=== PATIENT | male | born 1940 | race Caucasian/White ===

== ENCOUNTER 2018-04-25 16:30 | Inpatient (IN) | payer MEDICARE, BC ==
--- NOTE | 2018-04-25 17:38 | ED ---
Abdominal Pain/Male - HPI Summary HPI Summary: A 77 y/o male presents to the ED c/o flank pain since 04/21/2018. He went to [facility] had a CT done where he found out he has a kidney stone. The report from [facility] showed: 8mm stone in proximal ureter with perinephric stranding. Distal ureter collapsed. He rates his pain as 5/10. He denies Fever, Chills, Erythema (eyes), Sore throat, Chest pain, Shortness of Breath, Cough, Vomiting, Nausea, Dysuria, Hematuria, Myalgia, Edema, Rash and Dizziness. He denies a Hx of A-fib. - History of Current Complaint Chief Complaint: EDAbdPain Stated Complaint: ABD PAIN Time Seen by Provider: 04/25/18 17:14 Hx Obtained From: Patient Onset/Duration: Sudden Onset, Lasting Days, Still Present Timing: Constant Severity Initially: Moderate Severity Currently: Moderate Pain Intensity: 5 Pain Scale Used: 0-10 Numeric Location: Flank Radiates to: Flank - Allergies/Home Medications Allergies/Adverse Reactions: Allergies Allergy/AdvReac Type Severity Reaction Status Date / Time No Known Allergies Allergy Verified 04/25/18 16:36 Home Medications: Home Medications Allopurinol TAB* [Zyloprim 100 MG TAB*] 100 mg PO DAILY 04/25/18 [History Confirmed 04/25/18] Ciprofloxacin TAB* [Cipro 500 MG TAB*] 500 mg PO BID 04/25/18 [History Confirmed 04/25/18] Levothyroxine TAB* [Synthroid TAB*] 75 mcg PO DAILY 04/25/18 [History Confirmed 04/25/18] PMH/Surg Hx/FS Hx/Imm Hx Endocrine/Hematology History: Denies: Hx Diabetes Cardiovascular History: Denies: Hx Atrial Fibrillation, Hx Hypertension Infectious Disease History: No Infectious Disease History: Denies: Traveled Outside the [place] in Last 30 Days - Family History Known Family History: Negative: Cardiac Disease, Hypertension, Diabetes - Social History Alcohol Use: None Substance Use Type: Reports: None Smoking Status (MU): Never Smoked Tobacco Review of Systems Negative: Fever, Chills Negative: Erythema Negative: Sore Throat Negative: Chest Pain Negative: Shortness Of Breath, Cough Positive: Abdominal Pain. Negative: Vomiting, Nausea Positive: flank pain. Negative: dysuria, hematuria Negative: Myalgia, Edema Negative: Rash Neurological: Negative - dizziness All Other Systems Reviewed And Are Negative: Yes Physical Exam - Summary Physical Exam Summary: Constitutional: Well-developed, Well-nourished, Alert. (-) Distressed Skin: Warm, Dry HENT: Normocephalic; Atraumatic Eyes: Conjunctiva normal Neck: Musculoskeletal ROM normal neck. (-) JVD, (-) Stridor, (-) Tracheal deviation Cardio: Irregularly irregular pulse, (-) Murmur Pulmonary/Chest wall: Effort normal. (-) Respiratory distress, (-) Wheezes, (-) Rales Abd: Soft, (-) epigastric tenderness, (-) Distension, (-) Guarding, (-) Rebound , (+) left CVA tenderness. Musculoskeletal: (-) Edema Lymph: (-) Cervical adenopathy Neuro: Alert, Oriented x3 Psych: Mood and affect Normal Triage Information Reviewed: Yes Vital Signs On Initial Exam: Initial Vitals Temp Pulse Resp BP Pulse Ox 99.6 F 64 18 162/97 97 04/25/18 16:32 04/25/18 16:32 04/25/18 16:32 04/25/18 16:32 04/25/18 16:32 Vital Signs Reviewed: Yes Diagnostics - Vital Signs Vital Signs Temp Pulse Resp BP Pulse Ox 04/25/18 16:32 99.6 F 64 18 162/97 97 - Laboratory Result Diagrams: 04/25/18 17:51 04/25/18 17:51 Lab Statement: Any lab studies that have been ordered have been reviewed, and results considered in the medical decision making process. - Radiology abdomen x-ray Radiology Interpretation Completed By: ED Physician - proximal uretal stone on left side. Pening official radiology report. - CT abdomen/pelvis CT Interpretation Completed By: Radiologist - 1. Obstructing 0.8 cm calculus ( Density 1540 HU) in the proximal left ureter, with associated moderate left hydronephrosis and left perinephric stranding. 2. Additional small nonobstructive calyceal calculi in both kidneys. 3. Other chronic findings, as above. ED physician reviewed this report. - Ultrasound No standard instances Ultrasound Interpretation Completed By: Radiologist - Renal US: No evidence of hydronephrosis or nephrolithiasis. ED physician reviewed this report. - EKG 18:20 Cardiac Rate: NL - 87 bpm EKG Rhythm: Sinus Rhythm Summary of EKG Findings: no STEMI. Abdominal Pain Fem Course/Dx - Course Course Of Treatment: A 77 y/o male presents to the ED c/o flank pain since 04/21. He went to [facility] had a CT done where he found out he has a kidney stone. The report from [facility] showed: 8mm stone in proximal ureter with perinephric stranding. Distal ureter collapsed. He rates his pain as 5/10. He denies Fever, Chills, Erythema (eyes), Sore throat, Chest pain, Shortness of Breath, Cough, Vomiting, Nausea, Dysuria, Hematuria, Myalgia, Edema, Rash and Dizziness. He denies a Hx of A-fib. His EKG showed NSR at 87 bpm. His abd/ pelvis CT impression was: 1. Obstructing 0.8 cm calculus (Density 1540 HU) in the proximal left ureter,. with associated moderate left hydronephrosis and left perinephric stranding. 2. Additional small nonobstructive calyceal calculi in both kidneys. 3. Other chronic findings, as above. His renal US impression was No evidence of hydronephrosis or nephrolithiasis. I discussed with Dr. Woods definite findings on the CT which are not evident on the US. His abd x-ray revealed a proximal uretal stone on his left side. Dx: obstructive uropathy, obstructed uretal stone, acute renal failure. Dr. Mack States that he wants to take the patient to surgery tomorrow morning because currently the roads are impassable and there is no surgical emergency. The patient will be admitted. - Diagnoses Provider Diagnoses: Obstructive uropathy, Acute renal failure, Kidney stone - Provider Notifications Discussed Care Of Patient With: Jake Mack Time Discussed With Above Provider: 19:15 Instructed by Provider To: Other - He wants to take the patient to surgery tomorrow morning because currently the roads are impassable and there is no surgical emergency. Discharge - Sign-Out/Discharge Documenting (check all that apply): Patient Departure - admit - Discharge Plan Condition: Fair Disposition: ADMITTED TO [facility] - Attestation Statements Document Initiated by Scribe: Yes Documenting Scribe: Garret Nobles Provider For Whom Scribe is Documenting (Include Credential): Terrance Wray MD Scribe Attestation: I, Garret Nobles, scribed for Terrance Wray MD on 04/25/18 at 2220. Consult Consult: At 20:[address] Woods definite findings on the CT which are not evident on the US.
[2018-04-25] MEDS ORDERED: NS 0.9% 1000 ML* 1,000 ML IV ONE (17:50)
[2018-04-25 18:05] LABS: ABS Basophils 0 10^3/ul (0-0.2); ABS Eosinophils 0 10^3/ul (0-0.6); ABS Neutrophils 15.7 10^3/ul (1.5-7.7); ABS Nucleated RBC 0 10^3/ul; Eosinophil % 0.1 % (0-6); Hematocrit 40 % (42-52); Hemoglobin 13.9 g/dl (14.0-18.0); Lymphocyte % 5.8 % (25-47); Mean Corpuscular HGB Conc 34 g/dl (31-36); Mean Corpuscular Hemoglobin 32 pg (27-31); Mean Corpuscular Volume 94 fL (80-94); Nucleated Red Blood Cells % 0; Platelet Count 171 10^3/ul (150-450); Red Cell Distribution Width 15 % (10.5-15); White Blood Count 17.8 10^3/ul (3.5-10.8)
[2018-04-25] MEDS: Ketorolac INJ* 30 MG/ML 1 ML VIAL IV PUSH ONE ×2 (18:09→18:12)
[2018-04-25 18:11] LABS: INR 1.25 (0.77-1.02)
[2018-04-25] MEDS ORDERED: oxyCODONE/Acetamin 5/325 MG* TAB PO ONE (18:11)
[2018-04-25 18:47] LABS: Urine Appearance Clear; Urine Blood 2+ (Negative); Urine Color Yellow; Urine Ketones Negative (Negative); Urine Protein 2+(100 mg/dL) (Negative); Urine Red Blood Cell 3+(>10/hpf) (Absent); Urine Specific Gravity 1.009 (1.010-1.030); Urine Urobilinogen Negative (Negative); Urine White Blood Cell 1+(6-10/hpf) (Absent)
[2018-04-25] MEDS ORDERED: Piperacillin/Tazobac ADVAN(*) 3.375 GM in NS 0.9% 100 ML* 100 ML IVPB ONE (18:51)
[2018-04-25] MEDS ORDERED: cefTRIAXone(*) 2 GM in NS 0.9% 100 ML* 100 ML IVPB ONE (20:15)
[2018-04-25] MEDS ORDERED: NS 0.9% 1000 ML* 1,000 ML IV SCH (20:15)
[2018-04-25] MEDS ORDERED: Al Hydrox/Mg Hydrox/Simet LIQ* 30 ML UDC PO PRN (20:16)
[2018-04-25] MEDS ORDERED: Ondansetron INJ* 2 MG/ML VIAL IV PRN (20:16)
[2018-04-25] MEDS ORDERED: Acetaminophen TAB* 325 MG PO PRN (20:16)
[2018-04-25] MEDS ORDERED: Heparin VIAL(*) 5000 UNITS/ML VIAL (FIVE THOUSAND) SUBCUT SCH (22:00)
--- NOTE | 2018-04-26 03:45 | HP ---
CC: Dr. Harmon; Dr. Coleman * HISTORY AND PHYSICAL: DATE OF ADMISSION: 04/25/18 TIME OF EVALUATION: 1999. PRIMARY CARE PHYSICIAN: Dwight Harmon MD BURR BENCH HAND: Jorge Coleman MD CHIEF COMPLAINT: Left side pain. HISTORY OF PRESENT ILLNESS: This is a 77-year-old male with a past medical history of CKD stage 3, who presented to the emergency room from the PCP's office with an obstructed ureteral stone. The patient states his symptoms have been going on for almost a week with left lower side pain, worse with lying on it. He denies any urinary symptoms. No back pain, no flank pain, no dysuria, no urinary frequency. He thinks he may have had a low-grade temp. He has had nausea throughout the week. He had diarrhea earlier, but has improved. He has no history of a stone. He went to see his PCP, who did labs and a CAT scan and he was found to have an obstructing stone in the proximal left ureter. Urology was contacted. They recommended admission, antibiotics and they will take him to the OR in the morning. In the emergency room, the patient had labs, imaging , was given Zosyn, 1 L of normal saline, Percocet, and referred to the hospitalist service for further evaluation. PAST MEDICAL HISTORY: 1. Gout. 2. Hypothyroidism. 3. CKD, stage 3, followed by Dr. Coleman. MEDICATIONS: 1. Ciprofloxacin 500 mg p.o. b.i.d. started on 04/24/18. 2. Allopurinol 100 mg p.o. daily. 3. Synthroid 75 mcg p.o. daily. ALLERGIES: No known drug allergies. FAMILY HISTORY: Mother from Alzheimer's. Father from colon cancer and heavy smoker. SOCIAL HISTORY: The patient lives at home with his , Mirna, who is his healthcare proxy. He is independent of ADLs. No history of smoking, alcohol, or illicit drug use. Code status is full code. REVIEW OF SYSTEMS: A 14-point review of systems as mentioned in the HPI; otherwise, negative. PHYSICAL EXAMINATION GENERAL: No acute distress, resting comfortably. VITAL SIGNS: T-max 99.6, pulse rate 88, respiratory rate 12, oxygen saturation 96% on room air, and blood pressure 156/94. HEENT: Head normocephalic. Pupils are equal, reactive, anicteric. Oropharynx : Mucous membranes moist. NECK: Supple. No lymphadenopathy. No nuchal rigidity. RESPIRATORY: Diminished breath sounds. No wheezes, rhonchi, or rales. CARDIAC: Regular rate and rhythm with ectopic beats. Soft systolic murmur heard. ABDOMEN: Positive bowel sounds. Soft, nontender. He does have left-sided discomfort. No rebound or guarding. No flank pain. EXTREMITIES: Trace pretibial edema. +1 DPs. NEUROLOGIC: Alert and oriented x3. No gross focal neurologic deficits. DIAGNOSTIC STUDIES/LAB DATA: White count 17.8, hemoglobin 13.9, hematocrit 40 , platelets 171. INR 1.25. Sodium 130, potassium 4.7, chloride 96, bicarb 18, BUN 113, creatinine 6.09. Urinalysis shows squamous cells present, +3 reds, +1 white, +2 leuks, +2 blood, +2 protein. Radiographic Data: Abdomen and pelvis CT: Obstructing 0.8 cm calculus on the proximal left ureter with associated moderate left hydronephrosis and left perinephric stranding. Additional small nonobstructive calculi in both kidneys. Renal ultrasound: No evidence of hydronephrosis or nephrolithiasis. EKG: Sinus rhythm with PACs. ASSESSMENT: This is a 77-year-old male with a past medical history of chronic kidney disease stage 3, who presents to the emergency room after having found an obstructing 0.8 cm calculus in the ureter. 1. Left lower side pain. Assessment: As mentioned, the patient with an obstructing stone on the left. Dr. Watt has been contacted. He plans to take him first thing in the morning. He recommended 2 g of ceftriaxone, IV fluids, and n.p.o. We will repeat his labs in the morning. The patient is aware of the plan. 2. Mboti-ze-soniwyu kidney injury. The patient with worsening renal function, could be related to his obstructing stone. Plan: We will renally dose his meds. Continue IV fluids. Repeat his labs in the morning. Consider contacting Dr. Coleman if his renal function does not improve. CHRONIC MEDICAL PROBLEMS: 1. Gout. Continue his allopurinol. 2. Hypothyroidism. Continue his Synthroid. 3. FEN. Regular diet until he is n.p.o. after midnight with IV fluids. 4. DVT prophylaxis. The patient scores high risks, place him on heparin subcu t.i.d., hold his morning dose. 5. Code status. Full code. PATIENT TIME: Greater than 40 minutes spent doing the history and physical, more than half the time was spent in direct patient contact. [id number]/[facility] #: [id number] MTDD
[2018-04-26] MEDS ORDERED: Famotidine IV* 10 MG/ML 2 ML (20 mg) IV ONE (06:07)
[2018-04-26] MEDS: Levothyroxine TAB* 75 MCG TAB PO SCH (06:32)
[2018-04-26 06:36] LABS: ABS Basophils 0 10^3/ul (0-0.2); ABS Eosinophils 0 10^3/ul (0-0.6); ABS Lymphocytes 1.5 10^3/ul (1.0-4.8); ABS Monocytes 1.1 10^3/ul (0-0.8); ABS Neutrophils 10.3 10^3/ul (1.5-7.7); ABS Nucleated RBC 0 10^3/ul; Eosinophil % 0.4 % (0-6); Hematocrit 36 % (42-52); Hemoglobin 12.5 g/dl (14.0-18.0); Lymphocyte % 11.7 % (25-47); Mean Corpuscular HGB Conc 34 g/dl (31-36); Mean Corpuscular Hemoglobin 32 pg (27-31); Mean Corpuscular Volume 94 fL (80-94); Nucleated Red Blood Cells % 0.1; Platelet Count 166 10^3/ul (150-450); Red Blood Count 3.89 10^6/ul (4.00-5.40); Red Cell Distribution Width 15 % (10.5-15)
[2018-04-26 06:55] LABS: EGFR Non-African American 9.6 (>60)
[2018-04-26] MEDS ORDERED: Famotidine IV* 10 MG/ML 2 ML (20 mg) ONE (07:50)
[2018-04-26] MEDS ORDERED: Midazolam* 1 MG/ML 5 ML VIAL (5 MG) ONE (08:14)
[2018-04-26] MEDS ORDERED: fentaNYL* 50 MCG/ML 2 ML VIAL (100 MCG VIAL) ONE (08:14)
[2018-04-26] MEDS ORDERED: Ketorolac INJ* 30 MG/ML 1 ML VIAL ONE (08:16)
[2018-04-26] MEDS ORDERED: Propofol* 10 MG/ML 20 ML BTL IV PUSH ONE (08:16)
[2018-04-26] MEDS ORDERED: Dexamethasone IV* 4 MG/ML 1 ML (4 MG) ONE (08:16)
[2018-04-26] MEDS ORDERED: Ondansetron INJ* 2 MG/ML VIAL ONE (08:16)
[2018-04-26] MEDS ORDERED: Lidocaine 2% PF * 5 ML VIAL ONE (08:16)
[2018-04-26] MEDS ORDERED: DiMENhydriNATE IV* 50 MG/ML VIAL IV PUSH PRN (08:24)
[2018-04-26] MEDS ORDERED: Iohexol 180 (CONTRAST) 10 ML SDV IV ONE (08:24)
[2018-04-26] MEDS ORDERED: Acetaminophen TAB* 325 MG PO PRN (08:24)
[2018-04-26] MEDS ORDERED: HYDROmorphone INJ1* 1 MG/ML SYRINGE IV PRN (08:24)
[2018-04-26] MEDS ORDERED: Naloxone* 0.4 MG/ML 1 ML VIAL IV PRN (08:24)
[2018-04-26] MEDS: NS 0.9% 1000 ML* 1,000 ML IV SCH ×3 (11:30→21:54)
[2018-04-26] MEDS: Allopurinol TAB* 100 MG PO SCH (11:31)
--- NOTE | 2018-04-26 13:11 | PN ---
Subjective Date of Service: 04/26/18 Interval History: Pt resting comfortably in bed post-operatively, NAD. Says pain is well controlled. Denies chest pain, shortness of breath, dizziness, headache, flank pain, abdominal pain. Tolerating diet without N/V. Objective Active Medications: Acetaminophen (Tylenol Tab*) 650 mg PO Q4H PRN PRN Reason: FEVER/PAIN Al Hydrox/Mg Hydrox/Simethicone (Maalox Plus*) 30 ml PO Q6H PRN PRN Reason: INDIGESTION Allopurinol (Zyloprim Tab*) 100 mg PO DAILY [facility] Last Admin: 04/26/18 11:31 Dose: 100 mg Heparin Sodium (Porcine) (Heparin Vial(*)) 5,000 units SUBCUT Q8HR [facility] Sodium Chloride (Ns 0.9% 1000 Ml*) 1,000 mls @ 75 mls/hr IV PER RATE [facility] Last Admin: 04/26/18 11:30 Dose: 75 mls/hr Levothyroxine Sodium (Synthroid Tab*) 75 mcg PO 0600 [facility] Last Admin: 04/26/18 06:32 Dose: 75 mcg Ondansetron HCl (Zofran Inj*) 4 mg IV Q4H PRN PRN Reason: NAUSEA/VOMITING Vital Signs - 8 hr 04/26/18 04/26/18 04/26/18 06:33 09:42 09:45 Temperature 98.2 F 98.8 F Pulse Rate 87 74 80 Respiratory 16 18 15 Rate Blood Pressure 135/64 128/85 131/81 (mmHg) O2 Sat by Pulse 98 100 100 Oximetry 04/26/18 04/26/18 04/26/18 09:50 09:55 10:00 Temperature Pulse Rate 81 84 78 Respiratory 15 18 16 Rate Blood Pressure 124/85 130/89 138/88 (mmHg) O2 Sat by Pulse 100 98 98 Oximetry 04/26/18 04/26/18 04/26/18 10:25 11:30 12:45 Temperature 97.6 F 97.6 F 97.7 F Pulse Rate 70 80 Respiratory 16 Rate Blood Pressure 136/83 131/82 (mmHg) O2 Sat by Pulse 98 100 Oximetry 04/26/18 12:55 Temperature Pulse Rate 92 Respiratory Rate Blood Pressure 115/69 (mmHg) O2 Sat by Pulse 97 Oximetry Oxygen Devices in Use Now: None Eyes: No Scleral Icterus, PERRLA Ears/Nose/Mouth/Throat: NL Teeth, Lips, Gums, Clear Oropharnyx, Mucous Membranes Moist Neck: NL Appearance and Movements; NL JVP, Trachea Midline Respiratory: Symmetrical Chest Expansion and Respiratory Effort, Clear to Auscultation Cardiovascular: NL Sounds; No Murmurs; No JVD, RRR, No Edema Abdominal: NL Sounds; No Tenderness; No Distention Extremities: No Edema, No Clubbing, Cyanosis Skin: No Rash or Ulcers, No Nodules or Sclerosis, - - Some bleeding from urinary meatus. Gauze in place. Neurological: Alert and Oriented x 3, - - Resting tremor, pt says this is baseline. 3/5 strength bilateral UEs. 5/5 strength BLE. Lines/Tubes/Other Access: Clean, Dry and Intact Peripheral IV Nutrition: Taking PO's Result Diagrams: 04/26/18 15:40 04/26/18 06:14 Assess/Plan/Problems-Billing Assessment: 77 year old male with 0.8 cm obstructing stone in L ureter with hydronephrosis s/p internal urethrotomy and left urethral stent placement with Dr. Rucker today - Patient Problems (1) Urethral obstruction Current Visit: Yes Status: Acute Code(s): N36.8 - OTHER SPECIFIED DISORDERS OF URETHRA SNOMED Code(s): 21047741 Comment: - s/p internal urethrotomy and L urethral stent placement by Dr. Rucker today. - Per Dr. Rucker, mauricio should not be removed. Pt is at risk for post obstructive diuresis and associated volume/electrolye imbalances. Will support with NS at 75 mL/hr as well as periodic boluses based on urine output (will replace half of urine output with NS boluses). I/O Q4H. We will also moniter his electrolytes closely with a BMP with afternoon. Pt can be discharged with low dose cephalosporin on discharge (Renal dosing for Ceftinir is 300mg once daily). He will follow up with Dr. Rucker on Sunday morning at 8am. - Foly in place and draining. Slight pink tint to urine. - Pt with some post-operative bleeding from urinary meatus. Will continue to monitor. (2) Acute kidney injury superimposed on CKD Current Visit: Yes Status: Acute Code(s): N17.9 - ACUTE KIDNEY FAILURE, UNSPECIFIED; N18.9 - CHRONIC KIDNEY DISEASE, UNSPECIFIED SNOMED Code(s): 36069397 Comment: - Baseline Cr appears to be ~3.5 - Elevated on admission in the setting of hydronephrosis/urethral obstruction. Trending down this AM, but will continue to moniter. Repeat BMP this afternoon. - Renal adjust medications (3) DVT prophylaxis Current Visit: Yes Status: Acute Code(s): EIO2221 - SNOMED Code(s): 796791826 Comment: - SCDs and SQ heparin (4) Full code status Current Visit: Yes Status: Acute Code(s): Z78.9 - OTHER SPECIFIED HEALTH STATUS SNOMED Code(s): 956530557 Status and Disposition: Anticipate discharge tomorrow if medically stable. Follow up with Dr. Rucker on Sunday.
[2018-04-26] MEDS: Heparin VIAL(*) 5000 UNITS/ML VIAL (FIVE THOUSAND) SUBCUT SCH ×2 (14:26→21:56)
[2018-04-26 15:45] LABS: ABS Basophils 0 10^3/ul (0-0.2); ABS Eosinophils 0 10^3/ul (0-0.6); ABS Lymphocytes 0.4 10^3/ul (1.0-4.8); ABS Monocytes 0.3 10^3/ul (0-0.8); ABS Neutrophils 9.5 10^3/ul (1.5-7.7); ABS Nucleated RBC 0 10^3/ul; Eosinophil % 0 % (0-6); Hematocrit 35 % (42-52); Hemoglobin 11.8 g/dl (14.0-18.0); Mean Corpuscular HGB Conc 34 g/dl (31-36); Mean Corpuscular Hemoglobin 32 pg (27-31); Mean Corpuscular Volume 94 fL (80-94); Mean Platelet Volume 7.8 fL (7.4-10.4); Nucleated Red Blood Cells % 0; Platelet Count 158 10^3/ul (150-450); Red Blood Count 3.68 10^6/ul (4.00-5.40); Red Cell Distribution Width 15 % (10.5-15); White Blood Count 10.1 10^3/ul (3.5-10.8)
[2018-04-26 16:03] LABS: EGFR Non-African American 10.4 (>60)
[2018-04-26] MEDS ORDERED: NS 0.9% 250 ML* 200 ML IV ONE (22:00)
[2018-04-27] MEDS ORDERED: NS 0.9% IV ONE (02:00)
[2018-04-27] MEDS: NS 0.9% 1000 ML* 1,000 ML IV SCH (05:54)
[2018-04-27] MEDS: Levothyroxine TAB* 75 MCG TAB PO SCH (05:55)
[2018-04-27] MEDS: Heparin VIAL(*) 5000 UNITS/ML VIAL (FIVE THOUSAND) SUBCUT SCH (05:57)
[2018-04-27] MEDS ORDERED: NS 0.9% 500 ML* 300 ML IV ONE (06:00)
[2018-04-27 06:59] LABS: Hematocrit 34 % (42-52); Hemoglobin 11.6 g/dl (14.0-18.0); Mean Corpuscular HGB Conc 34 g/dl (31-36); Mean Corpuscular Hemoglobin 32 pg (27-31); Mean Corpuscular Volume 94 fL (80-94); Mean Platelet Volume 7.9 fL (7.4-10.4); Platelet Count 153 10^3/ul (150-450); Red Blood Count 3.62 10^6/ul (4.00-5.40); Red Cell Distribution Width 15 % (10.5-15); White Blood Count 8.8 10^3/ul (3.5-10.8)
[2018-04-27 07:14] LABS: EGFR Non-African American 11.2 (>60)
[2018-04-27 08:21] LABS: ABS Basophils 0 10^3/ul (0-0.2); ABS Eosinophils 0 10^3/ul (0-0.6); ABS Lymphocytes 0.9 10^3/ul (1.0-4.8); ABS Monocytes 0.4 10^3/ul (0-0.8); ABS Neutrophils 7.5 10^3/ul (1.5-7.7); ABS Nucleated RBC 0 10^3/ul; Eosinophil % 0 % (0-6); Lymphocyte % 9.9 % (25-47); Nucleated Red Blood Cells % 0
[2018-04-27] MEDS: Allopurinol TAB* 100 MG PO SCH (08:36)
[2018-04-27] MEDS ORDERED: CEFDINIR 300 MG PO SCH (10:00)
[2018-04-27] MEDS ORDERED: NS 0.9% IVPB ONE (11:00)
--- NOTE | 2018-04-27 12:03 | OP ---
CC: Dr. Harmon; Orion Watt MD OPERATIVE SUMMARY: DATE OF OPERATION: 04/26/18 DATE OF : 42 SURGEON: Orion Watt MD ANESTHESIOLOGIST: Dr. Zamorano ANESTHESIA: General. PRE-OP DIAGNOSES: 1. Left hydronephrosis. 2. Obstructing calculus, left proximal ureter. 3. Pondr-ff-rpjdqfl renal failure. 4. Urethral stricture. POST-OP DIAGNOSES: 1. Left hydronephrosis. 2. Obstructing calculus, left proximal ureter. 3. Cyemf-sb-idercxg renal failure. 4. Urethral stricture. OPERATIVE PROCEDURE: 1. Internal urethrotomy. 2. Cystoscopy, left retrograde; left ureteral calculus manipulation and left stent insertion. INDICATIONS: Morris Petty is a 77-year-old gentleman with a history of renal insufficiency. He was e valuated because of an obstructing calculus in the left proximal ureter and also in addition has a hi story of recurrent urethral stricture. COMPLICATIONS: None. POSTOPERATIVE CONDITION: Stable. STENT USED: 7-Ghanaian stent, left ureter. OPERATING FINDINGS: 1. Stricture lmq-zl-lauhipzq bulbar urethra with evidence of chronic false passage noted in proximal urethra (true lumen is on the left side). 2. Left hydronephrosis with obstructing calculus, left proximal ureter. DESCRIPTION OF PROCEDURE: After induction of general anesthesia, the patient was placed in dorsal li thotomy position. Initial evaluation revealed dense strictures in the mid bulbar urethra extending i nto the proximal bulbar urethra. Internal urethrotomy was carried out at the 12 o'clock position. I n the proximal part of the bulbar urethra, there was noted to be a chronic false passage and the true lumen was located on the left side. The bladder was entered. The prostate is mildly enlarged. The bladder appears unremarkable. A guidewire was introduced into the left ureter. Retrograde pyelogram revealed left hydronephrosis. The calculus was manipulated to a slightly more proximal position and after this, there was signific ant drainage of urine noted. A 7-Ghanaian stent was introduced and positioned under fluoroscopy with g ood proximal and distal positioning obtained. A 22-Ghanaian [place]-tip Edwards was placed over the guid ewire. The plan is to bring him back sometime in the near future for either shockwave lithotripsy or laser lithotripsy depending on the eventual position of calculus on the postoperative x-ray. The patient tolerated the procedure satisfactorily and was transferred back to recovery area in [facility] condition. [id number]/[facility] #: [id number]
[2018-04-27 13:01] VITALS: BP 130/71
--- NOTE | 2018-04-28 12:53 | DS ---
DISCHARGE SUMMARY: DATE OF ADMISSION: 04/25/18 DATE OF DISCHARGE: 04/27/18 ADMITTING PROVIDER: Nallely Moya DO PRIMARY CARE PROVIDER: Dwight Harmon MD OUTPATIENT JEWELRY DEPARTMENT SUPERVISOR: Dr. Coleman. CONSULTING UROLOGIST: Dr. Watt. CHIEF COMPLAINT: Left-sided flank pain. PRINCIPAL DIAGNOSES: Left ureteral stone, status post stent; acute on chronic kidney disease with acute renal failure; pyelonephritis as evidenced by perinephric stranding. HISTORY OF PRESENT ILLNESS AND HOSPITAL COURSE: Morris Petty is a 77-year-old male with a past medical history of chronic kidney disease stage 4, who was referred from PCP's office with an obstructing left-sided ureteral stone. Please see H and P of Dr. Nallely Moya for full details. He had symptoms of left lower side pain progressive for a week, may have had a low-grade temperature at home, had nausea, diarrhea, but that had improved. Outpatient CT scan showed the obstructing stone and Urology was contacted. They recommended admission and he got Zosyn in the ED and then ceftriaxone and IV fluids. Dr. Watt later that day performed internal urethrotomy and retrograde left cystoscopy and placed a 7-Slovenian stent along with a 22-Slovenian [place]-tip Edwards, which will remain to discharge until close followup with Dr. Watt on 04/29/18. There was recommendation for cephalosporin renally dosed on discharge. Of note, his T-max on presentation was 99.6. He had a leukocytosis of 17.8, heart rate as high as 94, respiratory rate as high as 22. His urinalysis was significant for 2+ blood, 2+ leukocyte esterase, 1+ wbc, 1+ bacteria, 2+ protein. His blood cultures grew 1 out 4 vials of Staphylococcus epidermidis, thought contaminant. Urine cultures also grew less than 1000 colony performing units, though this is additional sample. He did have a CT of abdomen and pelvis without IV contrast which showed that the obstructing 0.8 cm calculus at the proximal left ureter with associated moderate left hydronephrosis and left perinephric stranding and additional small amount of obstructive calyceal calculi in both kidneys. He had a renal ultrasound which demonstrated no evidence of hydronephrosis or nephrolithiasis. Of note, his presenting creatinine was 6.09, up from 3.5 on 02/27/18. This improved with obstruction relief and IV fluids down to 5.05 on day of discharge, GFR was 9.0 on admission and 11.2 on discharge. He has been recommended to follow up with Dr. Coleman, his outpatient loft rigger. He has got electrolyte replacement p.r.n. and IV fluids. DISCHARGE MEDICATIONS: Include: 1. Levothyroxine 75 mcg p.o. daily. 2. Cefdinir 300 mg p.o. daily (new, for 8 more days). 3. Allopurinol 100 mg p.o. daily. DISCHARGE DIET: No restrictions, unchanged. FOLLOW UP: He is to follow up with Dr. Orion Watt, Urology on 04/29/18 at 8: 00 am.; Dr. Jorge Coleman within 2 weeks; Dr. Dwight Harmon within 7 days. He was referred to visiting nurses service to help with his Edwards catheter. He should have a repeat BMP drawn within 7 days. TIME SPENT ON DISCHARGE: Thirty five minutes. [id number]/[facility] #: [id number] TWAN
== END 2018-04-27 14:40 | disposition home health service (06) | DRG 661 ==
LOC: ED 16:30 → MED 21:16 → OBSVTOIN 04-26 13:25
PROVIDERS: ADMIT Pediatrics; ATTEND Internal Medicine
PROC: 0T778DZ Dilation of Left Ureter with Intraluminal Device, Via Natural or Artificial Opening Endoscopic (ICD-10-PCS; principal; 2018-04-26 08:00)
DX: N13.6 Pyonephrosis (principal); N18.3 Chronic kidney disease, stage 3 (moderate); I12.9 Hypertensive chronic kidney disease with stage 1 through stage 4 chronic kidney disease, or unspecified chronic kidney disease; M10.9 Gout, unspecified; N17.9 Acute kidney failure, unspecified; E03.9 Hypothyroidism, unspecified; Z81.8 Family history of other mental and behavioral disorders; Z80.0 Family history of malignant neoplasm of digestive organs
CPT/HCPCS: 36415; 74018; 74176; 74420; 76775; 80048; 80053; 81003; 81015; 83605; 83735; 85025; 85610; 85730; 87040; 87077; 87086; 87150; 87205; 93005; 99284; A9270-GY; C1876; G0378; J0696; J1100; J1644; J1885; J2250; J2405; J2543; J2704; J3010

== ENCOUNTER 2018-05-13 12:09 | Day surgery (SDC) | payer MEDICARE, BC ==
[~2018-05-13 12:09] MED LIST: Buffered Lidocaine 0.9% SYRIN* 5 ML/SYR SYRINGE INTRADERM ONE; Dexamethasone IV* 4 MG/ML 1 ML (4 MG) IV SLOW PU ONE; Famotidine IV* 10 MG/ML 2 ML (20 mg) IV ONE
[2018-05-13] MEDS ORDERED: Famotidine IV* 10 MG/ML 2 ML (20 mg) ONE (13:37)
[2018-05-13] MEDS ORDERED: cefTRIAXone(*) 2 GM ADDV.VIAL IVPB ONE (13:37)
[2018-05-13] MEDS ORDERED: Dexamethasone IV* 4 MG/ML 1 ML (4 MG) ONE (13:37)
[2018-05-13] MEDS ORDERED: HYDROcodone/ACETAMIN 5-325 MG* 1 TAB PO PRN (15:21)
[2018-05-13] MEDS ORDERED: DiMENhydriNATE IV* 50 MG/ML VIAL IV PUSH PRN (15:21)
[2018-05-13] MEDS ORDERED: fentaNYL* 50 MCG/ML 2 ML VIAL (100 MCG VIAL) IV PRN (15:21)
[2018-05-13] MEDS ORDERED: Naloxone* 0.4 MG/ML 1 ML VIAL IV PRN (15:21)
[2018-05-13] MEDS ORDERED: Lidocaine 2% PF * 5 ML VIAL ONE (16:25)
[2018-05-13] MEDS ORDERED: Propofol* 10 MG/ML 20 ML BTL ONE (16:25)
[2018-05-13] MEDS ORDERED: fentaNYL* 50 MCG/ML 2 ML VIAL (100 MCG VIAL) ONE (16:25)
[2018-05-13] MEDS ORDERED: Phenylephrine INJ* 10 MG/ML 1 ML VIAL (10 MG) ONE (16:37)
[2018-05-13 17:50] VITALS: BP 151/81
--- NOTE | 2018-05-14 14:14 | OP ---
CC: Dr. Dwight Harmon * DATE OF OPERATION: 05/13/18 - [facility] DATE OF : 42 SURGEON: Orion Watt MD. ANESTHESIOLOGIST: Dr. Ahmadi. ANESTHESIA: General. PRE-OP DIAGNOSIS: Calculus left ureter POST-OP DIAGNOSIS: Calculus left ureter. OPERATIVE PROCEDURE: Shockwave lithotripsy of calculus left ureter. INDICATIONS: Morris Petty is a 77-year-old gentleman who had undergone urgent left stent insertion because of acute renal failure with a creatinine of 6 secondary to an obstructing calculus in the proximal left ureter. He has underlying chronic kidney disease and after the stent insertion, his creatinine came back to its baseline level of around 3 to 3.5. In addition, he has a longstanding history of urethral strictures and had also undergone an internal urethrotomy at the time of left stent insertion. He is now being brought in for shockwave lithotripsy. COMPLICATIONS: None. POSTOPERATIVE CONDITION: Stable. DESCRIPTION OF PROCEDURE: After induction of general anesthesia, the patient was placed on the lithotripsy table in supine position. The calculus in the proximal left ureter was localized using fluoroscopy. The shockwave lithotripsy was commenced at a rate of 60 shocks per minute. Periodic imaging revealed good localization and a total of 2400 shocks were administered with good fragmentation observed. The patient tolerated the procedure satisfactorily and will be scheduled in the next week or 10 days for left stent removal in the office. [id number]/[facility] #: [id number] MTDD
== END 2018-05-13 18:20 | disposition home or self-care (01) ==
LOC: OR 12:09
PROVIDERS: ATTEND Urology
DX: N20.1 Calculus of ureter (principal); N18.3 Chronic kidney disease, stage 3 (moderate); E03.9 Hypothyroidism, unspecified
CPT/HCPCS: 74018; J0696; J1100; J2704; J3010